=== PATIENT | female | born 1955 | race Caucasian/White ===

== ENCOUNTER 2019-06-30 01:45 | Emergency (ER) | payer BC ==
[~2019-06-30] VITALS: Ht 162.6 cm; Wt 77.1 kg
[2019-06-30] MEDS ORDERED: LISINOPRIL40 MG PO (02:18)
[2019-06-30] MEDS ORDERED: TRESIBA FL100 UNIT/1 SUB-Q (02:20)
[2019-06-30] MEDS ORDERED: HUMALOG100 UNITS/ IV (02:22)
[2019-06-30] MEDS ORDERED: METHOTREXA SUB-Q (02:24)
[2019-06-30] MEDS ORDERED: RESTORIL30 MG PO (02:26)
[2019-06-30] MEDS ORDERED: XANAX0.5 MG PO (02:26)
[2019-06-30] MEDS ORDERED: VITAMIN D34000 UNIT PO (02:27)
== END 2019-06-30 06:02 | disposition home or self-care (01) ==
LOC: ED 01:45
DX: M33.10 Other dermatomyositis, organ involvement unspecified (principal); E11.9 Type 2 diabetes mellitus without complications; I10 Essential (primary) hypertension; F43.10 Post-traumatic stress disorder, unspecified; Z88.2 Allergy status to sulfonamides; Z79.899 Other long term (current) drug therapy; Z79.4 Long term (current) use of insulin
CPT/HCPCS: 82550; 85025; 96361; 96374; 99284-25; J1885; J7030